=== PATIENT | female | born 1945 | race Two or more races ===

== ENCOUNTER 2017-08-15 09:54 | Emergency (ER) | payer OTHER ==
[~2017-08-15] VITALS: Ht 162.6 cm; Wt 72.6 kg
[2017-08-15] MEDS ORDERED: SYNTHROID50 MCG (10:09)
[2017-08-15] MEDS ORDERED: PREVACID 24HR15 MG (10:09)
== END 2017-08-15 18:22 | disposition home or self-care (01) ==
LOC: ER 09:54
DX: K64.8 Other hemorrhoids (principal); K62.5 Hemorrhage of anus and rectum